=== PATIENT | female | born 1975 | race Caucasian/White ===

== ENCOUNTER 2018-05-11 06:25 | Observation (INO) | payer OTHER ==
[~2018-05-11] VITALS: Ht 170.2 cm; Wt 69.8 kg
[~2018-05-11 06:25] MED LIST: 5-HY50CA2 PO; ACID1TAB PO; CALCIUM; DULO20CA45 PO; ECHINACEA; FLUT9.9S NAS; IBUP200C8 PO; LANS15CA5 PO; LORA1TAB46 PO; METR60GE4 TP; MULT-516 PO; OMEG1CAP23 PO; [UNRECOGNIZED DRUG - OTHER]; [UNRECOGNIZED DRUG - OTHER]; [UNRECOGNIZED DRUG - OTHER]
[2018-05-11] MEDS ORDERED: BUPIVACAINE/PF 0.25% ONE (07:04)
[2018-05-11] MEDS ORDERED: ESTROGENS CONJUGATED VAG CRM 0.625MG/1G, 30GM ONE (07:04)
[2018-05-11] MEDS ORDERED: NEOSPORIN OINT, 15GM ONE (07:04)
[2018-05-11] MEDS ORDERED: EPINEPHRINE 1 MG/ML, 1ML ONE (07:05)
[2018-05-11] MEDS ORDERED: LACTATED RINGERS 1,000 ML IV SCH (07:09)
[2018-05-11 07:29] LABS: HCG UR SG 1.003 (1.003-1.030)
[2018-05-11] MEDS ORDERED: SILVER NITRATE STICK TP ONE (08:43)
[2018-05-11] MEDS ORDERED: FLUORESCEIN SODIUM 500 MG/5 ML ONE (08:43)
[2018-05-11] MEDS ORDERED: FENTANYL PF 250 MCG/5ML ONE ×2 (08:48→11:20)
[2018-05-11] MEDS ORDERED: MIDAZOLAM 1 MG/ML, 2ML ONE (08:48)
[2018-05-11] MEDS ORDERED: PROPOFOL 50 ML ONE ×5 (08:48→11:52)
[2018-05-11] MEDS ORDERED: BUPIVACAINE/PF 0.25% INFIL ONE (09:38)
[2018-05-11] MEDS ORDERED: EPHEDRINE 50 MG/ML, 1ML IM PRN (10:00)
[2018-05-11] MEDS ORDERED: ONDANSETRON ODT 8 MG PO PRN (10:00)
[2018-05-11] MEDS ORDERED: ONDANSETRON 2MG/ML, 2ML IV PRN (10:00)
[2018-05-11] MEDS ORDERED: ACETAMINOPHEN 325 MG TABLET PO PRN (10:00)
[2018-05-11] MEDS ORDERED: LABETALOL 5MG/ML, 20ML IV PRN (10:00)
[2018-05-11] MEDS ORDERED: DIPHENHYDRAMINE 50 MG/ML, 1ML IVPush PRN (10:00)
[2018-05-11] MEDS ORDERED: PROMETHAZINE 25 MG SUPP PR PRN (10:00)
[2018-05-11] MEDS ORDERED: EPHEDRINE 50 MG/ML, 1ML IVPush PRN (10:00)
[2018-05-11] MEDS ORDERED: MORPHINE SULFATE 4 MG/ML, 1ML IVPush PRN (10:00)
[2018-05-11] MEDS ORDERED: MIDAZOLAM 1 MG/ML, 2ML IV PRN (10:00)
[2018-05-11] MEDS ORDERED: PROMETHAZINE 12.5 MG SUPP PR PRN (10:00)
[2018-05-11] MEDS ORDERED: MEPERIDINE/PF 25MG/0.5ML IVPush PRN (10:00)
[2018-05-11] MEDS ORDERED: OXYcodone 5 MG/5 ML ORAL.SOL UDC PO PRN ×2 (10:00→12:30)
[2018-05-11] MEDS ORDERED: PROMETHAZINE 25 MG/ML, 1ML IV PRN (10:00)
[2018-05-11] MEDS ORDERED: THROMBIN 5,000 UNIT VIAL TP ONE (11:31)
[2018-05-11] MEDS ORDERED: morphine SULFATE 10 MG/ML, 1ML IVPush PRN (12:30)
[2018-05-11] MEDS ORDERED: KETOROLAC 30 MG/1 ML IVPush PRN (12:30)
[2018-05-11] MEDS ORDERED: ACETAMINOPHEN 650 MG SUPP PR PRN (12:30)
[2018-05-11] MEDS ORDERED: FENTANYL PF 100 MCG/2ML ONE (12:50)
[2018-05-11] MEDS ORDERED: ACETAMINOPHEN 650 MG/20.3 ML UDC ONE (12:50)
[2018-05-11] MEDS: FENTANYL PF 100 MCG/2ML IV PRN ×2 (12:55→13:00)
[2018-05-11 16:14] VITALS: BP 118/81
[2018-05-11] MEDS: SIMETHICONE 80 MG CHEW TAB PO SCH ×2 (17:14→20:14)
[2018-05-11] MEDS: ACETAMINOPHEN 325 MG TABLET PO PRN ×2 (17:47→22:16)
[2018-05-11 19:46] LABS: BASOPHILS # (AUTO) 0.01 x10^3/uL (0-0.1); BASOPHILS % (AUTO) 0 % (0-1); EOSINOPHILS % (AUTO) 0 % (1-7); LYMPHOCYTES # (AUTO) 0.75 x10^3/uL (1-3.4); LYMPHOCYTES % (AUTO) 6 % (22-44); MD NO; MEAN CORPUSCULAR HEMOGLOBIN 25.8 pg (27.0-34.8); MEAN CORPUSCULAR VOLUME 78.1 fL (80-100); MEAN PLATELET VOLUME 8.9 fL (7.4-10.4); MONOCYTES # (AUTO) 1.04 x10^3/uL (0.2-0.8); MONOCYTES % (AUTO) 8 % (2-9); NEUTROPHILS # (AUTO) 11.38 x10^3/uL (1.8-6.8); NEUTROPHILS % (AUTO) 86 % (42-75); PLATELET COUNT 320 x10^3/uL (130-400); RED BLOOD COUNT 4.05 x10^6/uL (3.82-5.3); RED CELL DISTRIBUTION WIDTH 15.9 % (9.6-15.2)
[2018-05-11 20:00] VITALS: BP 113/80
[2018-05-11 23:46] VITALS: BP 108/73
[2018-05-12 02:55] VITALS: BP 100/66
[2018-05-12] MEDS: ACETAMINOPHEN 325 MG TABLET PO PRN ×2 (04:03→08:56)
[2018-05-12 07:25] VITALS: BP 116/71
[2018-05-12] MEDS: SIMETHICONE 80 MG CHEW TAB PO SCH (08:55)
[2018-05-12] MEDS ORDERED: ONDA4TAB7 PO (09:01)
[2018-05-12] MEDS ORDERED: OXYC-302 PO (09:01)
== END 2018-05-12 09:53 | disposition home or self-care (01) ==
LOC: OUT 06:25 → 4NOR 15:53 → OUT 22:47 → 4NOR 22:48 → DCLOUNGE 05-12 09:41
PROVIDERS: ADMIT Obstetrics & Gynecology Maternal & Fetal Medicine; ATTEND Obstetrics & Gynecology Maternal & Fetal Medicine
DX: N92.0 Excessive and frequent menstruation with regular cycle (principal); N81.10 Cystocele, unspecified; N81.6 Rectocele; N93.8 Other specified abnormal uterine and vaginal bleeding; Z80.3 Family history of malignant neoplasm of breast
CPT/HCPCS: 36415; 57260; 58552; 81025; 85014; 85018; 85025; 88307; G0378; J0171; J2250; J2704; J3010; J3490; J7120